=== PATIENT | male | born 1960 | race Caucasian/White ===

== ENCOUNTER 2017-09-21 07:34 | Day surgery (SDC) | payer OTHER ==
[2017-09-21] MEDS: MIDAZOLAM 1 MG/ML 2 ML INJ (10:53)
[2017-09-21] MEDS: FENTAnyl 50 MCG/ML VIAL (10:53)
[2017-09-21] MEDS: SOD CHLORIDE 0.9% 1,000 ML IV (10:54)
[2017-09-21] MEDS: LIDOCAINE 1% (MDV) 10 ML INJ (10:56)
[2017-09-21] MEDS ORDERED: HYDROCODONE/APAP (5/325) TAB PO (11:00)
== END 2017-09-21 12:25 | disposition home or self-care (01) ==
LOC: SDS 07:34
DX: C61 Malignant neoplasm of prostate (principal); C77.5 Secondary and unspecified malignant neoplasm of intrapelvic lymph nodes; I10 Essential (primary) hypertension
CPT/HCPCS: 49180; 77012; 88307; 88313; 88341; 88342

== ENCOUNTER 2017-11-07 02:06 | Inpatient (IN) | payer OTHER ==
[2017-11-07] MEDS: ONDANSETRON 4 MG INJ IV (03:10)
[2017-11-07] MEDS: SOD CHLORIDE 0.9% 1,000 ML IV (03:10)
[2017-11-07] MEDS: morphine 4 MG/ML VIAL IV ×3 (03:10→05:49)
[2017-11-07 03:14] LABS: ADD MAN DIFF? NO
[2017-11-07 03:16] LABS: WHITE BLOOD COUNT 22.1 10^3/ul (4.8-10.8)
[2017-11-07 03:16] LABS: ABNORMAL IP MESSAGE 1; BASOPHILS % 0.2 % (0.0-2.0); EOSINOPHILS # 0.1 10^3/ul (0.0-0.5); EOSINOPHILS % 0.3 % (0.0-7.0); HEMATOCRIT 34.7 % (42.0-52.0); HEMOGLOBIN 11.8 g/dl (14.0-18.0); IMMATURE GRANS #M 0.14 10^3/ul; IMMATURE GRANS % (M) 0.6 %; LYMPHOCYTES # 0.9 10^3/ul (0.8-2.9); MEAN CORPUSCULAR HEMOGLOBIN 31.8 pg (29.0-33.0); MEAN CORPUSCULAR VOLUME 93.5 fl (82.0-101.0); MONOCYTE # 1.9 10^3/ul (0.3-0.9); MONOCYTES % 8.7 % (0.0-11.0); NEUTROPHILS % 86.2 % (39.0-77.0); PLATELET COUNT 479 10^3/UL (140-415); POSITIVE DIFF @See below; RED BLOOD COUNT 3.71 10^6/ul (4.70-6.10); RED CELL DISTRIBUTION WIDTH 12.5 % (11.5-14.5)
[2017-11-07 03:40] LABS: ALANINE AMINOTRANSFERASE 311 IU/L (13-69); ALBUMIN 3.4 g/dl (3.3-4.9); ALBUMIN/GLOBULIN RATIO 0.97; ALKALINE PHOSPHATASE 1442 IU/L (42-121); ANION GAP 17 (8-16); ASPARTATE AMINO TRANSFERASE 611 IU/L (15-46); BILIRUBIN,INDIRECT 0.6 mg/dl (0-1.1); BILIRUBIN,TOTAL 1.8 mg/dl (0.2-1.3); BLOOD UREA NITROGEN 17 mg/dl (7-20); CALCIUM 9.4 mg/dl (8.4-10.2); CARBON DIOXIDE 26 mmol/L (21-31); CHLORIDE 95 mmol/L (97-110); CREATININE 0.72 mg/dl (0.61-1.24); GLUCOSE 119 mg/dl (70-220); LIPASE 100 U/L (23-300); SODIUM 135 mmol/L (135-144); TOTAL PROTEIN 6.9 g/dl (6.1-8.1)
[2017-11-07 03:44] LABS: POTASSIUM 2.9 mmol/L (3.5-5.1)
[2017-11-07 03:52] LABS: TROPONIN-I < 0.010 ng/ml (0.000-0.120)
[2017-11-07] MEDS: POTASSIUM CHLORIDE 50 ML IVPB ×2 (04:22→05:49)
[2017-11-07] MEDS: PIPER-TAZO 3.375 GM IV (PMX) 100 ML IVPB ×2 (04:22→07:50)
[2017-11-07] MEDS: SODIUM CHLORIDE 0.9% 1L BAG IV* (04:22)
[2017-11-07] MEDS: VANCOMYCIN 1 GM (PMX) 250 ML IVPB (04:25)
[2017-11-07 05:01] LABS: LACTIC ACID 1.5 mmol/L (0.5-2.0)
[2017-11-07] MEDS ORDERED: ACETAMINOPHEN 325 MG TAB PO ×2 (05:30→06:30)
[2017-11-07] MEDS ORDERED: ONDANSETRON 4 MG INJ IV ×2 (05:30→06:30)
[2017-11-07] MEDS ORDERED: SOD CHLORIDE 0.9% 1,000 ML IV (06:28)
[2017-11-07] MEDS ORDERED: NACL 0.9% 3 ML SYG IV (06:30)
[2017-11-07] MEDS ORDERED: DOCUSATE SODIUM 100 MG CAP PO (06:30)
[2017-11-07] MEDS ORDERED: BISACODYL (EC) 5 MG TAB PO (06:30)
[2017-11-07] MEDS: morphine 2 MG INJ IV (06:55)
[2017-11-07] MEDS ORDERED: POTASSIUM CHLORIDE 40 MEQ in SOD CHLORIDE 0.9% 1,000 ML IV (07:00)
[2017-11-07] MEDS: FUROSEMIDE 40 MG INJ IV (07:50)
[2017-11-07] MEDS ORDERED: MULTIVITAMINS 10 ML, THIAMINE 100 MG, FOLIC ACID 1 MG in SOD CHLORIDE 0.9% 1,000 ML IVPB (09:00)
[2017-11-07] MEDS: ENOXAPARIN 40 MG/0.4 ML SYG SC (09:00)
[2017-11-07] MEDS: THIAMINE 200 MG INJ IM (09:00)
[2017-11-07] MEDS: ALBUMIN HUMAN 25% 100 ML IV ×2 (09:00→09:17)
[2017-11-07] MEDS: NICOTINE (21 MG/24 HR) PATCH TRANSDERM (09:17)
[2017-11-07 09:25] LABS: HAAIG REFLEX REFLEX FILED
[2017-11-07 09:53] LABS: HEMOGLOBIN A1C 5.9 % (0-5.9)
[2017-11-07 09:54] LABS: IRON 53 ug/dl (35-150)
[2017-11-07 09:55] LABS: LACTIC ACID 1.2 mmol/L (0.5-2.0)
[2017-11-07 09:59] LABS: ETHANOL < 10.0 mg/dl
[2017-11-07 10:01] LABS: CHOL/HDL RATIO 3.6 RATIO; CHOLESTEROL 141 mg/dl (100-200); HDL CHOLESTEROL 39 mg/dl (30-78); LDL CHOLESTEROL,CALCULATED 83 mg/dl; TRIGLYCERIDES 96 mg/dl (0-149)
[2017-11-07 10:01] LABS: MAGNESIUM 1.5 mg/dl (1.7-2.5)
[2017-11-07] MEDS: HYDROmorphONE 0.5 MG/0.5 ML SYG IV ×5 (10:02→23:46)
[2017-11-07 10:03] LABS: % IRON SATURATION 24 % SAT (22-52); PARTIAL THROMBOPLASTIN TIME 27.7 Sec (25.0-35.0); PROTIME 12.2 Sec (11.9-14.9); TOTAL IRON BINDING CAPACITY 223 ug/dl (241-421)
[2017-11-07 10:35] LABS: HEPATITIS B SURFACE ANTIGEN NEGATIVE (NEGATIVE)
[2017-11-07 10:38] LABS: C-REACTIVE PROTEIN 20.6 mg/dl (0.0-0.9)
[2017-11-07 10:53] LABS: HEPATITIS B CORE ANTIBODY NEGATIVE (NEGATIVE); HEPATITIS C VIRAL ANTIBODY NEGATIVE (NEGATIVE)
[2017-11-07 10:59] LABS: PROSTATE SPECIFIC ANTIGEN 1.1 ng/ml (0.0-4.0)
[2017-11-07] MEDS: [UNRECOGNIZED DRUG - REMARK] XX (11:00)
[2017-11-07] MEDS: BACLOFEN 10 MG TAB PO ×2 (15:00→21:00)
[2017-11-07] MEDS: POTASSIUM CHLORIDE (SR) 20 MEQ TAB PO (15:00)
[2017-11-07] MEDS: BISACODYL (EC) 5 MG TAB PO (15:00)
[2017-11-07] MEDS: IBUPROFEN 400 MG TAB PO (15:12)
[2017-11-07] MEDS: LIPO FLAVONOID PLUS PO (15:12)
[2017-11-07] MEDS: DOCUSATE SODIUM 100 MG CAP PO (20:53)
[2017-11-07] MEDS: NICOTINE POLACRILEX 2 MG GUM BUCCAL (20:53)
[2017-11-07] MEDS ORDERED: CAPECITABINE 500 MG TAB PO (21:00)
[2017-11-07] MEDS: BETAMETHASONE/CLOTRIMAZOLE 15 GM CR TOP (21:00)
[2017-11-07] MEDS ORDERED: CAPECITABINE 1500 MG PO (21:00)
[2017-11-07] MEDS: ATORVASTATIN 40 MG TAB PO (21:00)
[2017-11-07 23:58] LABS: ADD UMIC NO; UR ASCORBIC ACID NEGATIVE (NEGATIVE); UR BILIRUBIN (Dip) 1+ mg/dL (NEGATIVE); UR BLOOD (Dip) NEGATIVE (NEGATIVE); UR CLARITY CLEAR (CLEAR); UR COLOR AMBER (YELLOW); UR GLUCOSE (Dip) NEGATIVE (NEGATIVE); UR KETONES (Dip) NEGATIVE (NEGATIVE); UR LEUKOCYTE ESTERASE (Dip) NEGATIVE Leu/ul (NEGATIVE); UR NITRITE (Dip) NEGATIVE (NEGATIVE); UR SPECIFIC GRAVITY (Dip) 1.016 (1.003-1.030); UR TOTAL PROTEIN (Dip) NEGATIVE (NEGATIVE); UR UROBILINOGEN (Dip) 2+ mg/dL (NEGATIVE)
[2017-11-08] MEDS: HYDROmorphONE 0.5 MG/0.5 ML SYG IV ×3 (03:42→10:16)
[2017-11-08] MEDS: NICOTINE POLACRILEX 2 MG GUM BUCCAL (03:45)
[2017-11-08] MEDS: IBUPROFEN 400 MG TAB PO (04:49)
[2017-11-08] MEDS: PANTOPRAZOLE (EC) 40 MG TAB PO (05:05)
[2017-11-08] MEDS ORDERED: NA PHOSPHATE/BIPHOS 133 ML ENEMA PR (07:30)
[2017-11-08] MEDS: BISACODYL 10 MG SUPP PR (07:51)
[2017-11-08] MEDS: THIAMINE 200 MG INJ IM (07:54)
[2017-11-08] MEDS: ENOXAPARIN 40 MG/0.4 ML SYG SC (07:54)
[2017-11-08 08:08] LABS: ADD MAN DIFF? NO
[2017-11-08 08:12] LABS: WHITE BLOOD COUNT 25.9 10^3/ul (4.8-10.8)
[2017-11-08 08:12] LABS: ABNORMAL IP MESSAGE 1; BASOPHILS % 0.2 % (0.0-2.0); EOSINOPHILS # 0.1 10^3/ul (0.0-0.5); EOSINOPHILS % 0.4 % (0.0-7.0); HEMATOCRIT 37.1 % (42.0-52.0); HEMOGLOBIN 12.2 g/dl (14.0-18.0); IMMATURE GRANS #M 0.17 10^3/ul; IMMATURE GRANS % (M) 0.7 %; LYMPHOCYTES # 0.9 10^3/ul (0.8-2.9); LYMPHOCYTES % 3.6 % (15.0-51.0); MEAN CORPUSCULAR HEMOGLOBIN 31.1 pg (29.0-33.0); MEAN CORPUSCULAR HGB CONC 32.9 g/dl (32.0-37.0); MEAN CORPUSCULAR VOLUME 94.6 fl (82.0-101.0); MEAN PLATELET VOLUME 10.1 fl (7.4-10.4); MONOCYTE # 1.8 10^3/ul (0.3-0.9); NEUTROPHIL # 22.9 10^3/ul (1.6-7.5); NEUTROPHILS % 88.1 % (39.0-77.0); PLATELET COUNT 534 10^3/UL (140-415); POSITIVE DIFF @See below; RED BLOOD COUNT 3.92 10^6/ul (4.70-6.10)
[2017-11-08 08:30] LABS: ALANINE AMINOTRANSFERASE 342 IU/L (13-69); ALBUMIN 3.6 g/dl (3.3-4.9); ALBUMIN/GLOBULIN RATIO 0.97; ANION GAP 16 (8-16); ASPARTATE AMINO TRANSFERASE 432 IU/L (15-46); BILIRUBIN,INDIRECT 0.8 mg/dl (0-1.1); BILIRUBIN,TOTAL 3.2 mg/dl (0.2-1.3); BLOOD UREA NITROGEN 17 mg/dl (7-20); CALCIUM 9.6 mg/dl (8.4-10.2); CARBON DIOXIDE 30 mmol/L (21-31); CHLORIDE 96 mmol/L (97-110); CREATININE 0.84 mg/dl (0.61-1.24); GLUCOSE 121 mg/dl (70-220); POTASSIUM 3.6 mmol/L (3.5-5.1); SODIUM 138 mmol/L (135-144); TOTAL PROTEIN 7.3 g/dl (6.1-8.1)
[2017-11-08 08:40] LABS: ALKALINE PHOSPHATASE 1497 IU/L (42-121)
[2017-11-08] MEDS: BETAMETHASONE/CLOTRIMAZOLE 15 GM CR TOP ×2 (09:00→21:11)
[2017-11-08] MEDS ORDERED: NON-FORMULARY/PATIENT OWN MED (Cholecalciferol (Vitamin D3) (Vitamin D-3) 2,000 UNIT) PO (09:00)
[2017-11-08] MEDS: DOCUSATE SODIUM 100 MG CAP PO ×2 (09:00→21:10)
[2017-11-08] MEDS: BISACODYL (EC) 5 MG TAB PO (09:00)
[2017-11-08] MEDS: POLYETHYLENE GLYCOL 17 GM PACKET PO (09:00)
[2017-11-08] MEDS ORDERED: HYDROCHLOROTHIAZIDE 50 MG PO (09:00)
[2017-11-08] MEDS: BACLOFEN 10 MG TAB PO ×3 (09:00→16:37)
[2017-11-08 09:04] LABS: CANCER ANTIGEN 19-9 42.4 U/ml (0.0-37.0)
[2017-11-08] MEDS: NICOTINE (21 MG/24 HR) PATCH TRANSDERM (09:18)
[2017-11-08] MEDS: LIPO FLAVONOID PLUS PO (10:09)
[2017-11-08] MEDS: CHOLECALCIFEROL 2,000 UNIT CAP PO (10:10)
[2017-11-08] MEDS: HYDROCHLOROTHIAZIDE 25 MG TAB PO (10:10)
[2017-11-08] MEDS: MAGNESIUM CITRATE 300 ML BTL PO (10:11)
[2017-11-08] MEDS: ATORVASTATIN 40 MG TAB PO (10:14)
[2017-11-08] MEDS: LORAZEPAM 2 MG INJ IV ×3 (11:45→22:05)
[2017-11-08] MEDS: oxyCODONE (CR) 10 MG TAB [oxyCONTIN] PO (12:23)
[2017-11-08] MEDS ORDERED: INDOMETHACIN 50 MG SUPP PR (13:30)
[2017-11-08] MEDS ORDERED: HYDROmorphONE 1 MG/ML SYG IV ×2 (14:00→20:00)
[2017-11-08] MEDS ORDERED: HYDROmorphONE 2 MG/ML SYG IV (17:00)
[2017-11-08] MEDS: METHADONE (1 MG/ML 5 ML PO UD SYG) PO ×2 (17:00→21:11)
[2017-11-09] MEDS: METHADONE (1 MG/ML 5 ML PO UD SYG) PO ×3 (00:59→09:00)
[2017-11-09] MEDS ORDERED: NALOXONE (0.4 MG/ML) INJ (04:44)
[2017-11-09] MEDS: NALOXONE (0.4 MG/ML) INJ IV (04:48)
[2017-11-09] MEDS: LORAZEPAM 2 MG INJ IV (05:13)
[2017-11-09] MEDS: PANTOPRAZOLE (EC) 40 MG TAB PO (05:17)
[2017-11-09] MEDS: HYDROmorphONE 0.5 MG/0.5 ML SYG IV (06:15)
[2017-11-09] MEDS: HYDROCHLOROTHIAZIDE 25 MG TAB PO (09:00)
[2017-11-09] MEDS: ENOXAPARIN 40 MG/0.4 ML SYG SC (09:00)
[2017-11-09] MEDS: THIAMINE 200 MG INJ IM (09:00)
[2017-11-09] MEDS: BETAMETHASONE/CLOTRIMAZOLE 15 GM CR TOP (09:00)
[2017-11-09] MEDS: DOCUSATE SODIUM 100 MG CAP PO (09:00)
[2017-11-09] MEDS: LIPO FLAVONOID PLUS PO (09:00)
[2017-11-09] MEDS: BISACODYL (EC) 5 MG TAB PO (09:00)
[2017-11-09] MEDS: ATORVASTATIN 20 MG TAB PO (09:00)
[2017-11-09] MEDS: CHOLECALCIFEROL 2,000 UNIT CAP PO (09:00)
[2017-11-09] MEDS: POLYETHYLENE GLYCOL 17 GM PACKET PO (09:00)
[2017-11-09] MEDS: NICOTINE (21 MG/24 HR) PATCH TRANSDERM (10:23)
[2017-11-09 11:12] LABS: ALANINE AMINOTRANSFERASE 201 IU/L (13-69); ALBUMIN 2.7 g/dl (3.3-4.9); ALBUMIN/GLOBULIN RATIO 0.96; ALKALINE PHOSPHATASE 1289 IU/L (42-121); ANION GAP 15 (8-16); ASPARTATE AMINO TRANSFERASE 188 IU/L (15-46); BILIRUBIN,INDIRECT 0.8 mg/dl (0-1.1); BLOOD UREA NITROGEN 27 mg/dl (7-20); CALCIUM 10.6 mg/dl (8.4-10.2); CARBON DIOXIDE 33 mmol/L (21-31); CHLORIDE 92 mmol/L (97-110); CREATININE 0.63 mg/dl (0.61-1.24); GLUCOSE 113 mg/dl (70-220); POTASSIUM 3.6 mmol/L (3.5-5.1); SODIUM 136 mmol/L (135-144); TOTAL PROTEIN 5.5 g/dl (6.1-8.1)
[2017-11-09] MEDS: HEPARIN (100 UNITS/ML) 5 ML SYG CATHETER (13:18)
[2017-11-09] MEDS ORDERED: METHADONE (1 MG/ML 5 ML PO UD SYG) PO (22:00)
[2017-11-15] MEDS ORDERED: MIDAZOLAM 1 MG/ML 2 ML INJ (14:11)
[2017-11-15] MEDS ORDERED: METOCLOPRAMIDE 10 MG INJ (14:12)
[2017-11-15] MEDS ORDERED: SUCCINYLCHOLINE CHLORIDE 100 MG/5 ML SYG IV (14:15)
[2017-11-15] MEDS ORDERED: PROPOFOL 20 ML (14:15)
[2017-11-15] MEDS ORDERED: ONDANSETRON 4 MG INJ (14:27)
[2017-11-15] MEDS ORDERED: FENTAnyl 50 MCG/ML VIAL (14:30)
== END 2017-11-09 13:30 | disposition left against medical advice (07) | DRG 374 ==
LOC: E/R 02:06 → MS1 11-08 21:25
DX: C16.0 Malignant neoplasm of cardia (principal); K83.1 Obstruction of bile duct; C77.4 Secondary and unspecified malignant neoplasm of inguinal and lower limb lymph nodes; N13.30 Unspecified hydronephrosis; F10.20 Alcohol dependence, uncomplicated; R60.1 Generalized edema; F10.21 Alcohol dependence, in remission; F17.210 Nicotine dependence, cigarettes, uncomplicated; I10 Essential (primary) hypertension; E78.5 Hyperlipidemia, unspecified; E87.6 Hypokalemia; E83.42 Hypomagnesemia; D63.8 Anemia in other chronic diseases classified elsewhere; D50.9 Iron deficiency anemia, unspecified; R59.1 Generalized enlarged lymph nodes; N50.89 Other specified disorders of the male genital organs; Y90.0 Blood alcohol level of less than 20 mg/100 ml; Z85.46 Personal history of malignant neoplasm of prostate
CPT/HCPCS: 36415; 71045; 74176; 74181; 76705; 80053; 80061; 80307; 81003; 83036; 83540; 83605; 83690; 83735; 84153; 84154; 84443; 84484; 85025; 85610; 85730; 86140; 86301; 86704; 86709; 86803; 87040; 87340; 93005; 93306; 93970; 96361; 96365; 96375; 99291-25

== ENCOUNTER 2017-11-10 03:12 | Inpatient (IN) | payer OTHER ==
[2017-11-10] MEDS ORDERED: CHLORDIAZEPOXIDE 25 MG CAP PO (11:30)
[2017-11-10] MEDS: SOD CHLORIDE 0.9% 1,000 ML IV ×2 (15:56→23:01)
[2017-11-10] MEDS: MULTIVITAMINS 10 ML, THIAMINE 100 MG, FOLIC ACID 1 MG in SOD CHLORIDE 0.9% 1,000 ML IVPB (17:58)
[2017-11-10] MEDS ORDERED: ONDANSETRON 4 MG INJ IV (19:00)
[2017-11-10 19:56] LABS: ADD MAN DIFF? NO
[2017-11-10 19:59] LABS: ABNORMAL IP MESSAGE 1; BASOPHILS % 0.1 % (0.0-2.0); EOSINOPHILS # 0.1 10^3/ul (0.0-0.5); EOSINOPHILS % 0.3 % (0.0-7.0); HEMATOCRIT 28.1 % (42.0-52.0); HEMOGLOBIN 9.6 g/dl (14.0-18.0); LYMPHOCYTES # 0.8 10^3/ul (0.8-2.9); LYMPHOCYTES % 3.1 % (15.0-51.0); MEAN CORPUSCULAR HGB CONC 34.2 g/dl (32.0-37.0); MEAN CORPUSCULAR VOLUME 93.7 fl (82.0-101.0); MEAN PLATELET VOLUME 10.2 fl (7.4-10.4); MONOCYTES % 7.9 % (0.0-11.0); NEUTROPHIL # 21.7 10^3/ul (1.6-7.5); NEUTROPHILS % 87.9 % (39.0-77.0); PLATELET COUNT 465 10^3/UL (140-415); POSITIVE DIFF @See below; RED CELL DISTRIBUTION WIDTH 13.2 % (11.5-14.5)
[2017-11-10 19:59] LABS: WHITE BLOOD COUNT 24.7 10^3/ul (4.8-10.8)
[2017-11-10] MEDS: CHLORDIAZEPOXIDE 25 MG CAP PO ×2 (20:00→23:28)
[2017-11-10] MEDS: HYDROmorphONE 0.5 MG/0.5 ML SYG IV (20:07)
[2017-11-10 20:23] LABS: AMMONIA < 9 umol/l (9-30)
[2017-11-10 20:44] LABS: INR 0.93; PROTIME 12.5 Sec (11.9-14.9)
[2017-11-10 20:45] LABS: PARTIAL THROMBOPLASTIN TIME 29.8 Sec (25.0-35.0)
[2017-11-10 21:08] LABS: ALANINE AMINOTRANSFERASE 117 IU/L (13-69); ALBUMIN 2.7 g/dl (3.3-4.9); ALKALINE PHOSPHATASE 941 IU/L (42-121); ANION GAP 15 (8-16); ASPARTATE AMINO TRANSFERASE 66 IU/L (15-46); BILIRUBIN,INDIRECT 0.7 mg/dl (0-1.1); BILIRUBIN,TOTAL 0.7 mg/dl (0.2-1.3); BLOOD UREA NITROGEN 34 mg/dl (7-20); CARBON DIOXIDE 28 mmol/L (21-31); CHLORIDE 96 mmol/L (97-110); GLUCOSE 101 mg/dl (70-220); MAGNESIUM 1.3 mg/dl (1.7-2.5); POTASSIUM 3.4 mmol/L (3.5-5.1); SODIUM 136 mmol/L (135-144); TOTAL PROTEIN 5.3 g/dl (6.1-8.1)
[2017-11-10 21:09] LABS: ALBUMIN/GLOBULIN RATIO 1.03
[2017-11-11] MEDS ORDERED: CHLORDIAZEPOXIDE 25 MG CAP PO
[2017-11-11] MEDS: HYDROmorphONE 0.5 MG/0.5 ML SYG IV ×6 (00:42→22:16)
[2017-11-11] MEDS: MAGNESIUM SULFATE 2 GM/50 ML 50 ML IVPB (01:48)
[2017-11-11 02:03] LABS: ADD UMIC NO; UR ASCORBIC ACID 20 mg/dL (NEGATIVE); UR BILIRUBIN (Dip) NEGATIVE (NEGATIVE); UR BLOOD (Dip) NEGATIVE (NEGATIVE); UR CLARITY CLEAR (CLEAR); UR COLOR AMBER (YELLOW); UR GLUCOSE (Dip) NEGATIVE (NEGATIVE); UR KETONES (Dip) NEGATIVE (NEGATIVE); UR LEUKOCYTE ESTERASE (Dip) NEGATIVE Leu/ul (NEGATIVE); UR NITRITE (Dip) NEGATIVE (NEGATIVE); UR SPECIFIC GRAVITY (Dip) 1.019 (1.003-1.030); UR TOTAL PROTEIN (Dip) NEGATIVE (NEGATIVE); UR UROBILINOGEN (Dip) 1+ mg/dL (NEGATIVE)
[2017-11-11] MEDS: POTASSIUM CHLORIDE 100 ML IVPB (03:52)
[2017-11-11] MEDS: PANTOPRAZOLE 40 MG INJ IV ×2 (05:50→17:54)
[2017-11-11 10:05] LABS: ADD MAN DIFF? NO
[2017-11-11 10:07] LABS: ABNORMAL IP MESSAGE 1; BASOPHILS % 0.2 % (0.0-2.0); EOSINOPHILS # 0.2 10^3/ul (0.0-0.5); EOSINOPHILS % 0.9 % (0.0-7.0); HEMATOCRIT 26.9 % (42.0-52.0); HEMOGLOBIN 8.8 g/dl (14.0-18.0); LYMPHOCYTES # 0.7 10^3/ul (0.8-2.9); LYMPHOCYTES % 3.1 % (15.0-51.0); MEAN CORPUSCULAR HGB CONC 32.7 g/dl (32.0-37.0); MEAN CORPUSCULAR VOLUME 94.7 fl (82.0-101.0); MEAN PLATELET VOLUME 10.8 fl (7.4-10.4); MONOCYTES % 8.9 % (0.0-11.0); NEUTROPHIL # 19.1 10^3/ul (1.6-7.5); NEUTROPHILS % 85.9 % (39.0-77.0); PLATELET COUNT 410 10^3/UL (140-415); POSITIVE DIFF @See below; RED BLOOD COUNT 2.84 10^6/ul (4.70-6.10); RED CELL DISTRIBUTION WIDTH 13.5 % (11.5-14.5)
[2017-11-11 10:07] LABS: WHITE BLOOD COUNT 22.3 10^3/ul (4.8-10.8)
[2017-11-11 10:26] LABS: POTASSIUM 3.3 mmol/L (3.5-5.1)
[2017-11-11] MEDS: MULTIVITAMINS 10 ML, THIAMINE 100 MG, FOLIC ACID 1 MG in SOD CHLORIDE 0.9% 1,000 ML IVPB (11:53)
[2017-11-11] MEDS: SOD CHLORIDE 0.9% 1,000 ML IV (12:30)
[2017-11-11] MEDS: NICOTINE (14 MG/24 HR) PATCH TRANSDERM (13:06)
[2017-11-11] MEDS ORDERED: NICOTINE POLACRILEX 2 MG GUM MM (21:00)
[2017-11-11] MEDS: GABAPENTIN 300 MG CAP PO (21:00)
[2017-11-11] MEDS: MAG SULFATE 2GM IN 50 ML IVPB (22:17)
[2017-11-11] MEDS: POTASSIUM CHLORIDE 40 MEQ in SOD CHLORIDE 0.9% 1,000 ML IV (22:18)
[2017-11-12] MEDS: HYDROmorphONE 0.5 MG/0.5 ML SYG IV ×5 (03:03→16:38)
[2017-11-12] MEDS: PANTOPRAZOLE 40 MG INJ IV ×2 (06:46→18:25)
[2017-11-12] MEDS: GABAPENTIN 300 MG CAP PO ×3 (08:08→20:48)
[2017-11-12 08:27] LABS: ADD MAN DIFF? NO
[2017-11-12 08:38] LABS: ABNORMAL IP MESSAGE 1; BASOPHILS % 0.2 % (0.0-2.0); EOSINOPHILS # 0.2 10^3/ul (0.0-0.5); HEMATOCRIT 25.8 % (42.0-52.0); HEMOGLOBIN 8.3 g/dl (14.0-18.0); LYMPHOCYTES # 0.6 10^3/ul (0.8-2.9); LYMPHOCYTES % 2.9 % (15.0-51.0); MEAN CORPUSCULAR HEMOGLOBIN 30.9 pg (29.0-33.0); MEAN CORPUSCULAR HGB CONC 32.2 g/dl (32.0-37.0); MEAN CORPUSCULAR VOLUME 95.9 fl (82.0-101.0); MEAN PLATELET VOLUME 10.4 fl (7.4-10.4); MONOCYTE # 2.1 10^3/ul (0.3-0.9); MONOCYTES % 9.7 % (0.0-11.0); NEUTROPHIL # 18.7 10^3/ul (1.6-7.5); NEUTROPHILS % 85.2 % (39.0-77.0); PLATELET COUNT 397 10^3/UL (140-415); POSITIVE DIFF @See below; RED BLOOD COUNT 2.69 10^6/ul (4.70-6.10); RED CELL DISTRIBUTION WIDTH 13.5 % (11.5-14.5)
[2017-11-12 09:06] LABS: ALANINE AMINOTRANSFERASE 79 IU/L (13-69); ALBUMIN 2.8 g/dl (3.3-4.9); ALBUMIN/GLOBULIN RATIO 0.93; ALKALINE PHOSPHATASE 890 IU/L (42-121); ANION GAP 12 (8-16); ASPARTATE AMINO TRANSFERASE 75 IU/L (15-46); BILIRUBIN,INDIRECT 0.4 mg/dl (0-1.1); BILIRUBIN,TOTAL 0.4 mg/dl (0.2-1.3); BLOOD UREA NITROGEN 26 mg/dl (7-20); CALCIUM 8.9 mg/dl (8.4-10.2); CARBON DIOXIDE 28 mmol/L (21-31); CHLORIDE 102 mmol/L (97-110); CREATININE 0.91 mg/dl (0.61-1.24); GLUCOSE 93 mg/dl (70-220); MAGNESIUM 2.1 mg/dl (1.7-2.5); POTASSIUM 3.2 mmol/L (3.5-5.1); SODIUM 139 mmol/L (135-144); TOTAL PROTEIN 5.8 g/dl (6.1-8.1)
[2017-11-12] MEDS: POTASSIUM CHLORIDE 40 MEQ in SOD CHLORIDE 0.9% 1,000 ML IV ×2 (09:15→22:17)
[2017-11-12] MEDS: NICOTINE (14 MG/24 HR) PATCH TRANSDERM (10:34)
[2017-11-12] MEDS: MULTIVITAMINS 10 ML, THIAMINE 100 MG, FOLIC ACID 1 MG in SOD CHLORIDE 0.9% 1,000 ML IVPB (10:41)
[2017-11-12] MEDS: LIDOCAINE 2% (SDV) 5 ML INJ (15:44)
[2017-11-12] MEDS: PROPOFOL 40 ML (15:44)
[2017-11-12] MEDS: SUCRALFATE (100 MG/ML) 10ML CUP PO ×2 (18:25→20:59)
[2017-11-12] MEDS: FLUCONAZOLE 100 MG TAB PO (18:25)
[2017-11-12] MEDS: POTASSIUM CHLORIDE (SR) 10 MEQ TAB PO (20:48)
[2017-11-12] MEDS: HYDROmorphONE 2 MG/ML SYG IV (20:53)
[2017-11-12] MEDS: ZOLPIDEM 5 MG TAB PO (22:19)
[2017-11-13] MEDS: HYDROmorphONE 2 MG/ML SYG IV ×4 (01:44→21:29)
[2017-11-13] MEDS: PANTOPRAZOLE 40 MG INJ IV ×2 (06:07→17:01)
[2017-11-13 08:52] LABS: ADD MAN DIFF? NO
[2017-11-13] MEDS: SUCRALFATE (100 MG/ML) 10ML CUP PO ×4 (09:06→21:12)
[2017-11-13] MEDS: NICOTINE (14 MG/24 HR) PATCH TRANSDERM (09:07)
[2017-11-13] MEDS: FLUCONAZOLE 100 MG TAB PO (09:07)
[2017-11-13] MEDS: POTASSIUM CHLORIDE (SR) 10 MEQ TAB PO (09:07)
[2017-11-13] MEDS: GABAPENTIN 300 MG CAP PO ×3 (09:07→21:12)
[2017-11-13 09:12] LABS: ABNORMAL IP MESSAGE 1; BASOPHIL # 0.1 10^3/ul (0.0-0.1); BASOPHILS % 0.3 % (0.0-2.0); EOSINOPHILS # 0.2 10^3/ul (0.0-0.5); EOSINOPHILS % 0.6 % (0.0-7.0); HEMATOCRIT 26.3 % (42.0-52.0); HEMOGLOBIN 8.4 g/dl (14.0-18.0); LYMPHOCYTES # 0.8 10^3/ul (0.8-2.9); LYMPHOCYTES % 3.2 % (15.0-51.0); MEAN CORPUSCULAR HGB CONC 31.9 g/dl (32.0-37.0); MEAN PLATELET VOLUME 10.7 fl (7.4-10.4); MONOCYTE # 1.8 10^3/ul (0.3-0.9); MONOCYTES % 7.6 % (0.0-11.0); NEUTROPHIL # 20.3 10^3/ul (1.6-7.5); NEUTROPHILS % 87.1 % (39.0-77.0); PLATELET COUNT 394 10^3/UL (140-415); POSITIVE DIFF @See below; RED BLOOD COUNT 2.71 10^6/ul (4.70-6.10); RED CELL DISTRIBUTION WIDTH 14.1 % (11.5-14.5)
[2017-11-13 09:12] LABS: WHITE BLOOD COUNT 23.3 10^3/ul (4.8-10.8)
[2017-11-13 09:15] LABS: ANION GAP 11 (8-16); BLOOD UREA NITROGEN 21 mg/dl (7-20); CALCIUM 8.7 mg/dl (8.4-10.2); CARBON DIOXIDE 27 mmol/L (21-31); CHLORIDE 102 mmol/L (97-110); CREATININE 1.03 mg/dl (0.61-1.24); GLUCOSE 112 mg/dl (70-220); POTASSIUM 3.7 mmol/L (3.5-5.1); SODIUM 136 mmol/L (135-144)
[2017-11-13] MEDS: MULTIVITAMINS 10 ML, THIAMINE 100 MG, FOLIC ACID 1 MG in SOD CHLORIDE 0.9% 1,000 ML IVPB (10:21)
[2017-11-13] MEDS: POTASSIUM CHLORIDE 40 MEQ in SOD CHLORIDE 0.9% 1,000 ML IV ×2 (12:16→23:14)
[2017-11-13] MEDS: NICOTINE POLACRILEX 2 MG GUM MM (13:49)
[2017-11-13] MEDS: ZOLPIDEM 5 MG TAB PO (21:59)
[2017-11-14] MEDS: HYDROmorphONE 2 MG/ML SYG IV ×5 (01:30→21:41)
[2017-11-14] MEDS: POTASSIUM CHLORIDE 40 MEQ in SOD CHLORIDE 0.9% 1,000 ML IV ×3 (04:50→23:32)
[2017-11-14] MEDS: PANTOPRAZOLE 40 MG INJ IV ×2 (05:39→17:58)
[2017-11-14] MEDS: POTASSIUM CHLORIDE (SR) 10 MEQ TAB PO (08:55)
[2017-11-14] MEDS: GABAPENTIN 300 MG CAP PO ×2 (08:55→12:23)
[2017-11-14] MEDS: FLUCONAZOLE 100 MG TAB PO (08:55)
[2017-11-14] MEDS: MULTIVITAMINS 10 ML, THIAMINE 100 MG, FOLIC ACID 1 MG in SOD CHLORIDE 0.9% 1,000 ML IVPB (08:55)
[2017-11-14] MEDS: SUCRALFATE (100 MG/ML) 10ML CUP PO ×4 (08:55→22:22)
[2017-11-14] MEDS: NICOTINE (14 MG/24 HR) PATCH TRANSDERM (08:56)
[2017-11-14] MEDS: NICOTINE POLACRILEX 2 MG GUM MM (09:04)
[2017-11-14] MEDS ORDERED: INDOMETHACIN 50 MG SUPP PR (13:30)
[2017-11-14] MEDS: ZOLPIDEM 5 MG TAB PO (21:49)
[2017-11-15] MEDS: HYDROmorphONE 2 MG/ML SYG IV ×4 (02:38→22:39)
[2017-11-15] MEDS: PANTOPRAZOLE 40 MG INJ IV ×2 (06:32→17:50)
[2017-11-15 06:36] LABS: ADD MAN DIFF? NO
[2017-11-15] MEDS: HYDROmorphONE 1 MG/ML SYG IV (06:37)
[2017-11-15 06:40] LABS: ABNORMAL IP MESSAGE 1; BASOPHIL # 0.1 10^3/ul (0.0-0.1); BASOPHILS % 0.3 % (0.0-2.0); EOSINOPHILS # 0.1 10^3/ul (0.0-0.5); EOSINOPHILS % 0.5 % (0.0-7.0); HEMATOCRIT 26.8 % (42.0-52.0); HEMOGLOBIN 8.3 g/dl (14.0-18.0); LYMPHOCYTES # 1.1 10^3/ul (0.8-2.9); LYMPHOCYTES % 4.5 % (15.0-51.0); MEAN CORPUSCULAR HEMOGLOBIN 30.7 pg (29.0-33.0); MEAN CORPUSCULAR VOLUME 99.3 fl (82.0-101.0); MEAN PLATELET VOLUME 10.4 fl (7.4-10.4); MONOCYTE # 1.6 10^3/ul (0.3-0.9); MONOCYTES % 6.5 % (0.0-11.0); NEUTROPHIL # 20.9 10^3/ul (1.6-7.5); NEUTROPHILS % 86.9 % (39.0-77.0); PLATELET COUNT 407 10^3/UL (140-415); POSITIVE DIFF @See below; RED CELL DISTRIBUTION WIDTH 14.6 % (11.5-14.5)
[2017-11-15 06:57] LABS: INR 0.93; PROTIME 12.6 Sec (11.9-14.9)
[2017-11-15] MEDS ORDERED: METOCLOPRAMIDE 10 MG INJ (07:00)
[2017-11-15] MEDS ORDERED: PROPOFOL 200 MG INJ (07:00)
[2017-11-15] MEDS ORDERED: SUCCINYLCHOLINE CHLORIDE 100 MG/5 ML SYG IV (07:00)
[2017-11-15] MEDS ORDERED: FENTAnyl 50 MCG/ML VIAL (07:00)
[2017-11-15] MEDS ORDERED: MIDAZOLAM 1 MG/ML 2 ML INJ (07:00)
[2017-11-15] MEDS ORDERED: ONDANSETRON 4 MG INJ (07:00)
[2017-11-15 07:13] LABS: ALANINE AMINOTRANSFERASE 152 IU/L (13-69); ALBUMIN 2.7 g/dl (3.3-4.9); ALBUMIN/GLOBULIN RATIO 0.93; ALKALINE PHOSPHATASE 1263 IU/L (42-121); ANION GAP 12 (8-16); ASPARTATE AMINO TRANSFERASE 203 IU/L (15-46); BILIRUBIN,INDIRECT 0.7 mg/dl (0-1.1); BLOOD UREA NITROGEN 16 mg/dl (7-20); CALCIUM 8.5 mg/dl (8.4-10.2); CARBON DIOXIDE 24 mmol/L (21-31); CHLORIDE 105 mmol/L (97-110); CREATININE 1.17 mg/dl (0.61-1.24); GLUCOSE 100 mg/dl (70-220); POTASSIUM 4.7 mmol/L (3.5-5.1); SODIUM 136 mmol/L (135-144); TOTAL PROTEIN 5.6 g/dl (6.1-8.1)
[2017-11-15] MEDS: POTASSIUM CHLORIDE (SR) 10 MEQ TAB PO (09:00)
[2017-11-15] MEDS: GABAPENTIN 300 MG CAP PO ×2 (09:00→20:07)
[2017-11-15] MEDS: SUCRALFATE (100 MG/ML) 10ML CUP PO ×4 (09:00→20:07)
[2017-11-15] MEDS: FLUCONAZOLE 100 MG TAB PO (09:00)
[2017-11-15] MEDS: NICOTINE (14 MG/24 HR) PATCH TRANSDERM (11:12)
[2017-11-15] MEDS: POTASSIUM CHLORIDE 40 MEQ in SOD CHLORIDE 0.9% 1,000 ML IV (13:45)
[2017-11-15] MEDS ORDERED: ALBUTEROL 0.083% (NEB) 2.5 MG/3 ML AMP HHN (14:00)
[2017-11-15] MEDS ORDERED: HYDROmorphONE 1 MG/5 ML IV SYRINGE IV (14:00)
[2017-11-15] MEDS ORDERED: hydrALAzine 20 MG INJ IV (14:00)
[2017-11-15] MEDS ORDERED: MEPERIDINE 25 MG INJ IV (14:00)
[2017-11-15] MEDS ORDERED: DIPHENHYDRAMINE 50 MG INJ IV (14:00)
[2017-11-15] MEDS ORDERED: ONDANSETRON 4 MG INJ IV (14:00)
[2017-11-15] MEDS ORDERED: LABETALOL HCL 20MG INJ IV (14:00)
[2017-11-15] MEDS: HYDROmorphONE 1 MG/5 ML IV SYRINGE IV (15:33)
[2017-11-15] MEDS: MULTIVITAMINS 10 ML, THIAMINE 100 MG, FOLIC ACID 1 MG in SOD CHLORIDE 0.9% 1,000 ML IVPB (16:30)
[2017-11-15] MEDS: NICOTINE POLACRILEX 2 MG GUM MM (17:44)
[2017-11-15] MEDS: ZOLPIDEM 5 MG TAB PO (20:56)
[2017-11-16] MEDS: POTASSIUM CHLORIDE 40 MEQ in SOD CHLORIDE 0.9% 1,000 ML IV ×3 (00:26→20:18)
[2017-11-16] MEDS: HYDROmorphONE 2 MG/ML SYG IV ×4 (01:45→20:18)
[2017-11-16] MEDS: PANTOPRAZOLE 40 MG INJ IV ×2 (05:42→18:18)
[2017-11-16 07:13] LABS: ADD MAN DIFF? NO
[2017-11-16 07:16] LABS: BASOPHILS % 0.2 % (0.0-2.0); EOSINOPHILS # 0.1 10^3/ul (0.0-0.5); EOSINOPHILS % 0.7 % (0.0-7.0); HEMOGLOBIN 7.6 g/dl (14.0-18.0); LYMPHOCYTES # 0.6 10^3/ul (0.8-2.9); LYMPHOCYTES % 3.2 % (15.0-51.0); MEAN CORPUSCULAR HEMOGLOBIN 30.8 pg (29.0-33.0); MEAN CORPUSCULAR HGB CONC 31.7 g/dl (32.0-37.0); MEAN CORPUSCULAR VOLUME 97.2 fl (82.0-101.0); MEAN PLATELET VOLUME 10.7 fl (7.4-10.4); MONOCYTE # 1.1 10^3/ul (0.3-0.9); MONOCYTES % 5.8 % (0.0-11.0); NEUTROPHIL # 17.3 10^3/ul (1.6-7.5); NEUTROPHILS % 88.9 % (39.0-77.0); PLATELET COUNT 441 10^3/UL (140-415); RED BLOOD COUNT 2.47 10^6/ul (4.70-6.10); RED CELL DISTRIBUTION WIDTH 14.5 % (11.5-14.5)
[2017-11-16 07:16] LABS: WHITE BLOOD COUNT 19.4 10^3/ul (4.8-10.8)
[2017-11-16 07:41] LABS: ALANINE AMINOTRANSFERASE 115 IU/L (13-69); ALBUMIN 2.3 g/dl (3.3-4.9); ALBUMIN/GLOBULIN RATIO 0.82; ALKALINE PHOSPHATASE 1051 IU/L (42-121); ANION GAP 12 (8-16); ASPARTATE AMINO TRANSFERASE 118 IU/L (15-46); BILIRUBIN,INDIRECT 0.7 mg/dl (0-1.1); BILIRUBIN,TOTAL 3.5 mg/dl (0.2-1.3); BLOOD UREA NITROGEN 17 mg/dl (7-20); CALCIUM 8.4 mg/dl (8.4-10.2); CARBON DIOXIDE 22 mmol/L (21-31); CHLORIDE 108 mmol/L (97-110); CREATININE 1.06 mg/dl (0.61-1.24); GLUCOSE 89 mg/dl (70-220); POTASSIUM 4.9 mmol/L (3.5-5.1); SODIUM 137 mmol/L (135-144); TOTAL PROTEIN 5.1 g/dl (6.1-8.1)
[2017-11-16] MEDS: SUCRALFATE (100 MG/ML) 10ML CUP PO ×4 (09:00→20:17)
[2017-11-16] MEDS: NICOTINE (14 MG/24 HR) PATCH TRANSDERM (11:34)
[2017-11-16] MEDS: NICOTINE POLACRILEX 2 MG GUM MM (11:34)
[2017-11-16] MEDS: POTASSIUM CHLORIDE (SR) 10 MEQ TAB PO (11:34)
[2017-11-16] MEDS: FLUCONAZOLE 100 MG TAB PO (11:34)
[2017-11-16] MEDS: MULTIVITAMINS 10 ML, THIAMINE 100 MG, FOLIC ACID 1 MG in SOD CHLORIDE 0.9% 1,000 ML IVPB (11:38)
[2017-11-16] MEDS ORDERED: LACTULOSE 30ML CUP PO (16:30)
[2017-11-16] MEDS: DOCUSATE SODIUM 100 MG CAP PO (20:17)
[2017-11-16] MEDS: ZOLPIDEM 5 MG TAB PO (20:17)
[2017-11-16] MEDS: MAGNESIUM HYDROXIDE 30ML CUP PO (20:17)
[2017-11-17] MEDS: HYDROmorphONE 2 MG/ML SYG IV ×4 (00:06→11:09)
[2017-11-17] MEDS: PANTOPRAZOLE 40 MG INJ IV (06:29)
[2017-11-17 07:42] LABS: ADD MAN DIFF? NO
[2017-11-17 07:47] LABS: BASOPHIL # 0.1 10^3/ul (0.0-0.1); BASOPHILS % 0.2 % (0.0-2.0); EOSINOPHILS # 0.2 10^3/ul (0.0-0.5); EOSINOPHILS % 0.7 % (0.0-7.0); HEMATOCRIT 26.1 % (42.0-52.0); HEMOGLOBIN 8.3 g/dl (14.0-18.0); LYMPHOCYTES # 0.8 10^3/ul (0.8-2.9); LYMPHOCYTES % 3.8 % (15.0-51.0); MEAN CORPUSCULAR HEMOGLOBIN 30.3 pg (29.0-33.0); MEAN CORPUSCULAR HGB CONC 31.8 g/dl (32.0-37.0); MEAN CORPUSCULAR VOLUME 95.3 fl (82.0-101.0); MONOCYTE # 1.5 10^3/ul (0.3-0.9); MONOCYTES % 7.1 % (0.0-11.0); NEUTROPHIL # 18.1 10^3/ul (1.6-7.5); NEUTROPHILS % 87.2 % (39.0-77.0); PLATELET COUNT 557 10^3/UL (140-415); RED BLOOD COUNT 2.74 10^6/ul (4.70-6.10); RED CELL DISTRIBUTION WIDTH 14.8 % (11.5-14.5)
[2017-11-17 07:47] LABS: WHITE BLOOD COUNT 20.8 10^3/ul (4.8-10.8)
[2017-11-17 08:05] LABS: INR 0.95; PROTIME 12.8 Sec (11.9-14.9)
[2017-11-17 08:19] LABS: ALANINE AMINOTRANSFERASE 99 IU/L (13-69); ALBUMIN 2.6 g/dl (3.3-4.9); ALBUMIN/GLOBULIN RATIO 0.83; ALKALINE PHOSPHATASE 1188 IU/L (42-121); ANION GAP 13 (8-16); ASPARTATE AMINO TRANSFERASE 119 IU/L (15-46); BILIRUBIN,INDIRECT 0.7 mg/dl (0-1.1); BILIRUBIN,TOTAL 3.8 mg/dl (0.2-1.3); BLOOD UREA NITROGEN 16 mg/dl (7-20); CALCIUM 8.6 mg/dl (8.4-10.2); CARBON DIOXIDE 22 mmol/L (21-31); CHLORIDE 107 mmol/L (97-110); CREATININE 1.16 mg/dl (0.61-1.24); GLUCOSE 97 mg/dl (70-220); POTASSIUM 4.8 mmol/L (3.5-5.1); SODIUM 137 mmol/L (135-144); TOTAL PROTEIN 5.7 g/dl (6.1-8.1)
[2017-11-17] MEDS: SUCRALFATE (100 MG/ML) 10ML CUP PO ×2 (09:00→13:15)
[2017-11-17] MEDS: POTASSIUM CHLORIDE (SR) 10 MEQ TAB PO (10:06)
[2017-11-17] MEDS: NICOTINE (14 MG/24 HR) PATCH TRANSDERM (10:07)
[2017-11-17] MEDS: MULTIVITAMINS 10 ML, THIAMINE 100 MG, FOLIC ACID 1 MG in SOD CHLORIDE 0.9% 1,000 ML IVPB (10:07)
[2017-11-17] MEDS: FLUCONAZOLE 100 MG TAB PO (10:07)
[2017-11-17] MEDS: MAGNESIUM HYDROXIDE 30ML CUP PO (10:32)
[2017-11-17] MEDS: HEPARIN (100 UNITS/ML) 5 ML SYG CATHETER (15:02)
== END 2017-11-17 15:20 | disposition home or self-care (01) | DRG 374 ==
LOC: E/R 03:12 → 2NE 05:12
PROC: 0DB58ZX Excision of Esophagus, Via Natural or Artificial Opening Endoscopic, Diagnostic (ICD-10-PCS; principal; 2017-11-12 12:30)
PROC: 0DB78ZX Excision of Stomach, Pylorus, Via Natural or Artificial Opening Endoscopic, Diagnostic (ICD-10-PCS; 2017-11-12 12:30)
PROC: 0DJ08ZZ Inspection of Upper Intestinal Tract, Via Natural or Artificial Opening Endoscopic (ICD-10-PCS; 2017-11-12 14:50)
DX: C16.0 Malignant neoplasm of cardia (principal); K83.1 Obstruction of bile duct; F10.239 Alcohol dependence with withdrawal, unspecified; C79.9 Secondary malignant neoplasm of unspecified site; K92.1 Melena; K22.10 Ulcer of esophagus without bleeding; R18.8 Other ascites; R17 Unspecified jaundice; G89.3 Neoplasm related pain (acute) (chronic); F17.200 Nicotine dependence, unspecified, uncomplicated; Z85.46 Personal history of malignant neoplasm of prostate; I10 Essential (primary) hypertension; E78.5 Hyperlipidemia, unspecified; J44.9 Chronic obstructive pulmonary disease, unspecified; K44.9 Diaphragmatic hernia without obstruction or gangrene; K29.70 Gastritis, unspecified, without bleeding; R59.0 Localized enlarged lymph nodes
CPT/HCPCS: 74330; 80048; 80053; 81003; 82140; 83735; 84132; 85025; 85610; 85730; 87040; 87081; 88305; 88312; 88313; 99285-25